=== PATIENT | female | born 1955 | race Caucasian/White ===

== ENCOUNTER → 2017-05-15 | Outpatient (CLI) | payer BC ==
[~2017-05-15] MED LIST: ACYC800 PO; ALBU90OI INH; ANTACID CHEWAB1 EACH PO; BENADRYL25 MG PO; CHOL10002 PO; CYCL10 PO; ELIQUIS5 MG PO; FLUO10; GABA300 PO; HYDCOR2.5C PR; HYDMOR2 PO; HYOS.125 SL; LAVAP17G PO; LEVSOD100 PO; LEVSOD150; MULVITMIND PO; OMEP20ER PO; PHENY100ER; PHENY100ER PO; PRED5 PO; Prednisone20 MG PO; SENN187 PO; SULTRIDS PO; SYNTHROID0.2 MG PO; TRET.1TC PO; Vitamin D400 UNI1 PO; [UNRECOGNIZED DRUG - OTHER]
[2017-05-16 14:30] LABS: Stool Occult Bld Immuno 1 Negative (NEGATIVE)
== END | disposition home or self-care (01) ==
LOC: LAB SHORT 15:16 → OLS 15:16
PROVIDERS: Nurse Practitioner Family
DX: Z00.01 Encounter for general adult medical examination with abnormal findings (principal); E78.2 Mixed hyperlipidemia; G40.909 Epilepsy, unspecified, not intractable, without status epilepticus; C92.00 Acute myeloblastic leukemia, not having achieved remission
CPT/HCPCS: G0328

== ENCOUNTER → 2018-12-18 | Outpatient (CLI) | payer OTHER ==
[2018-12-19 13:43] LABS: Stool Occult Bld Immuno 1 Negative (NEGATIVE); Stool Occult Bld Immuno 2 Negative (NEGATIVE); Stool Occult Bld Immuno 3 Negative (NEGATIVE)
== END | disposition home or self-care (01) ==
LOC: LAB SHORT 10:05 → LAB SRC 10:05 → LAB FUT 12-14 11:10 → EDSTATUS 12-14 11:10
PROVIDERS: Nurse Practitioner Family
DX: Z12.11 Encounter for screening for malignant neoplasm of colon (principal)
CPT/HCPCS: G0328

== ENCOUNTER → 2023-08-17 | Outpatient (CLI) | payer OTHER | END | disposition home or self-care (01) | LOC: LAB 17:49 → LAB SHORT 17:49 | DX: N39.0 Urinary tract infection, site not specified (principal) | CPT/HCPCS: 87077; 87086; 87186 ==

== ENCOUNTER → 2024-07-31 | Outpatient (CLI) | payer OTHER ==
[2024-07-31 15:34] LABS: Microalbumin, Random Urine <5.000 mg/L (0.000-20.000)
[2024-07-31 15:35] LABS: Microalb/Creat Ratio UR, Rand Unable to Calculate mg/g (0.000-30.000)
== END ==
LOC: LAB 12:40 → LAB SHORT 12:40
PROVIDERS: Physician Assistant
DX: E11.21 Type 2 diabetes mellitus with diabetic nephropathy (principal); E11.42 Type 2 diabetes mellitus with diabetic polyneuropathy; E11.59 Type 2 diabetes mellitus with other circulatory complications; E11.69 Type 2 diabetes mellitus with other specified complication
CPT/HCPCS: 82043; 82570